=== PATIENT | male | born 2000 | race Caucasian/White ===

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

== ENCOUNTER 2024-12-20 07:29 | Emergency (ER) | payer OTHER ==
[~2024-12-20] VITALS: Ht 177.8 cm; Wt 117.9 kg
[~2024-12-20 07:29] MED LIST changes: +METHOCARBAMOL500 M1 PO; +NAPROXEN250 MG PO
[2024-12-20] MEDS ORDERED: CEPHALEXIN500 M1 PO (08:35)
[2024-12-20] MEDS ORDERED: DERMABOND 1 EA APPL T ONE (09:13)
== END 2024-12-20 09:03 | disposition home or self-care (01) ==
LOC: ED 07:29
DX: S60.042A Contusion of left ring finger without damage to nail, initial encounter (principal); S60.032A Contusion of left middle finger without damage to nail, initial encounter; Z88.8 Allergy status to other drugs, medicaments and biological substances; Z90.89 Acquired absence of other organs; V09.9XXA Pedestrian injured in unspecified transport accident, initial encounter; Y93.89 Activity, other specified; Y92.89 Other specified places as the place of occurrence of the external cause; Y99.0 Civilian activity done for income or pay